=== PATIENT | female | born 1950 | race Caucasian/White ===

== ENCOUNTER 2022-06-07 01:45 | Emergency (ER) | payer MEDICARE, MEDICAID ==
[~2022-06-07] VITALS: Ht 165.1 cm; Wt 79.4 kg
[~2022-06-07 01:45] MED LIST: ALPR0.5T PO; AML5T PO; ATOR10TA PO; BENA20TA14 PO; BUS10T PO; CLON0.5T3 PO; ESOM40CA39 PO; FURO20TA3 PO; HYDR-3682 PO; HYDR12.56 PO; HYDR25T PO; HYDR8TAB46 PO; LORA-655 PO; METH500T22 PO; METO25TA93 PO; MON10T PO; NOR10T PO; NORT25CA PO; ONDA-143 PO; OYST500T48 OR; POTA8TAB2 PO; PRAV20TA3 PO; TIZA4CAP7 PO; TRAZ100T3 PO; ZOLP10TA PO
[2022-06-07] MEDS ORDERED: PANTOPRAZOLE 40mg/50ML NS AE 50 ML IV ONE (03:45)
[2022-06-07] MEDS ORDERED: PANTOPRAZOLE 80 MG in SODIUM CHL 0.9% 100 ML IV ONE (03:45)
[2022-06-07 03:48] LABS: Mean Corpuscular Volume 73.1 fL (80.0-100.0)
[2022-06-07 03:49] LABS: INR 1.11 (0.9-1.15)
[2022-06-07 03:50] LABS: Mean Corpuscular Hemoglobin 23.1 pg (28.0-32.0); Mean Corpuscular Hgb Conc. 31.6 g/dL (32.0-36.0); Red Blood Cells 3.01 10^6/uL (4.0-5.20); White Blood Cell 13.5 10^3/uL (4.4-10.8)
[2022-06-07 03:52] LABS: Red Cell Distribution Width 25.5 % (11.8-14.3)
[2022-06-07 03:54] LABS: Albumin 1.9 g/dL (3.4-5.0); Calcium 8.2 mg/dL (8.5-10.1); Potassium 3.8 mmol/L (3.5-5.1)
[2022-06-07 03:55] LABS: Basophils % (manual) 0 (0.0-2.0); Blast Cells 0; Metamyelocytes % 0; Promyelocytes % 0; Reactive Lymphocytes 0
[2022-06-07 03:57] LABS: BUN/Creatinine Ratio 61.1
[2022-06-07 04:00] LABS: Bilirubin, Total 0.2 mg/dL (0.2-1.0); Total Protein 5.6 g/dL (6.4-8.2)
[2022-06-07 04:38] LABS: Band Neutrophils % (manual) 5; Eosinophils % (manual) 2 (0-7); Lymphocytes % (manual) 11 (10.0-50.0); Monocytes % (manual) 5 (0-12); Myelocytes % 1
[2022-06-07 06:47] VITALS: BP 113/60
[2022-06-07] MEDS ORDERED: LORazepam 2MG/ML-1ML VIAL ONE (07:07)
[2022-06-07] MEDS ORDERED: LORazepam 2MG/ML-1ML VIAL IV ONE (07:15)
== END 2022-06-07 06:58 | disposition short-term general hospital (02) ==
LOC: EDBD 01:45 → ER 01:45
DX: K25.6 Chronic or unspecified gastric ulcer with both hemorrhage and perforation (principal); I11.0 Hypertensive heart disease with heart failure; I50.9 Heart failure, unspecified; E78.5 Hyperlipidemia, unspecified; E03.9 Hypothyroidism, unspecified; J45.909 Unspecified asthma, uncomplicated; Z86.2 Personal history of diseases of the blood and blood-forming organs and certain disorders involving the immune mechanism; Z79.899 Other long term (current) drug therapy; Z88.5 Allergy status to narcotic agent; Z91.048 Other nonmedicinal substance allergy status
CPT/HCPCS: 36415; 71045; 80053; 83880; 84484; 85007; 85027; 85610; 86850; 86900; 86901; 86920; 93005; 96365; 96375; 99291; C9113; J2060